=== PATIENT | male | born 1990 | race Caucasian/White ===

== ENCOUNTER 2022-03-02 23:21 | Inpatient (IN) | payer OTHER, SELFPAY ==
--- OUTSIDE RECORDS SUMMARY | 2022-03-02 23:23 | XMS REPORT | Continuity of Care Document ---
:1990 Author Organization [facility] t Address [address] [place] [id number] Care Team Providers Name Role Phone Unavailable Unavailable Unavailable Problems This patient has no known problems. Allergies, Adverse Reactions, Alerts This patient has no known allergies or adverse reactions. Medications This patient has no known medications. Procedures This patient has no known procedures. Results Test Description Test Time Test Comments Results Result Comments Source CBC W/AUTO DIFF WITH PLATELETS 2021-12-16 06:38:12 Test Item Value Reference Range Interpretation Comme nts WBC (test code = 1001) 6.4 K/UL 3.5-11.0 RBC (test code = 1002) 4.79 M/UL 4.50-6.10 HEMOGLOBIN (test code = 15.4 G/DL 13.5-17.0 1003) HEMATOCRIT (test code = 43.3 % 40.0-51.0 1004) MCV (test code = 1005) 90.4 fL 80.0-99.0 MCH (test code = 1006) 32.2 PG 25.0-33.0 MCHC (test code = 1007) 35.6 G/DL 31.0-36.0 RDW (test code = 1038) 11.9 % 11.5-15.0 NEUTROPHILS (test code = 69.1 % 1008) LYMPHOCYTES (test code = 19.0 % 1010) MONOCYTES (test code = 1011) 10.0 % EOSINOPHILS (test code = 0.8 % 1012) BASOPHILS (test code = 1013) 0.8 % IMMATURE GRANULOCYTES (test 0.3 % code = 1036) NUCLEATED RBCS (test code = 0.0 /100 WBC'S See_Comment [Automated message] The 1065) system which ge nerated this result transmit ricci reference range : 0.0. The reference range was not used to interpr et this result as reza l/abnormal. PLATELET COUNT (test code = 264 K/UL 094-026 1674) ABSOLUTE NEUTROPHILS (test 4.44 K/UL 1.50-7.50 code = 1066) ABSOLUTE LYMPHOCYTES (test 1.22 K/UL 1.00-4.00 code = 1067) ABSOLUTE MONOCYTES (test 0.64 K/UL 0.20-1.00 code = 1068) ABSOLUTE EOSINOPHILS (test 0.05 K/UL 0.00-0.50 code = 1040) ABSOLUTE BASOPHILS (test 0.05 K/UL 0.00-0.20 code = 1069) ABS IMMATURE GRANULOCYTES 0.02 K/UL 0.00-0.10 (test code = 1020) ABS NUCLEATED RBCS (test 0.00 K/UL 0.00-0.11 code = 20261) TSH, THIRD [id number] 06:06:31 Test Item Value Reference Range Interpretation Comments TSH, THIRD 9.400 UIU/ML 0.400-4.100 H UNLESS GENERATION (test OTHERWISE I NDICATED, code = 2821) ALL TESTING PER [facility], I DC. [address] [place] [address] LABORATORY DIRE CTOR: OLEG DOUGLAS M.D. CLIA NUMBER [id number] CAP ACCREDITATION N O. [id number] COMPREHENSIVE METABOLIC [id number] 03:40:20 Test Item Value Reference Range Interpretation Comments GLUCOSE (test code = 162 MG/DL 70-99 H 2216) BUN (test code = 12 MG/DL 6-20 2207) CREATININE (test 0.88 MG/DL 0.80-1.40 code = 2214) eGFR (2020 CKD-EPI) 116 >60 (test code = 40845) ML/MIN/1.73 CALC BUN/CREAT (test 14 RATIO 6-28 code = 2235) SODIUM (test code = 136 MEQ/L 862-704 5438) POTASSIUM (test code 4.6 MEQ/L 3.5-5.4 = 2227) CHLORIDE (test code 98 MEQ/L 95-107 = 221) CARBON DIOXIDE (test 22 MEQ/L 19-31 code = 2206) CALCIUM (test code = 9.4 MG/DL 8.5-10.5 2208) PROTEIN, TOTAL (test 7.6 G/DL 6.1-8.3 code = 2229) ALBUMIN (test code = 4.2 G/DL 3.5-5.2 2200) CALC GLOBULIN (test 3.4 G/DL 1.9-3.7 code = 2240) CALC A/G RATIO (test 1.2 RATIO 1.0-2.6 code = 2234) BILIRUBIN, TOTAL 0.7 MG/DL See_Comment [Automated message] (test code = 220) The syste m which generated this result transmit ricci reference range : <=1.2. The refe rence range was not u sed to interpret th is result as normal/abnormal . ALKALINE PHOSPHATASE 102 U/L 40-112 (test code = 2203) AST (test code = 505 U/L 9-50 H 2217) ALT (test code = 275 U/L 5-50 H 2218) LIPID [id number] 03:40:20 Test Item Value Reference Range Interpretation Comments CHOLESTEROL (test 249 MG/DL <200 H code = 2210) TRIGLYCERIDES (test 278 MG/DL <150 H code = 2232) HDL CHOLESTEROL (test 25 MG/DL >39 L code = 2220) CALC LDL CHOL (test 174 MG/DL <100 H NOTE: C ALCULATED LDL code = 2237) IS BASED ON LEVI-LAINEZ METHOD WHICHINCLUDES ADJUSTABLE TRIGLYCERIDE:VL DL CHOLESTEROL RAT IO.THIS FACTOR VARIES B Y MEASURED TRIGLY CERIDE AND NON-HDLCHOL ESTEROL CONCENTRATIONS WITH INCREASED CALCU LATED LDL SEENIN HIGH ER TRIGLYCERIDE OR LOWER NON-HDL SPECIME NS. FOR MOREINFORMATION , SEE CLIENT ANNOUNCE MENT AT [email or web address] RISK RATIO LDL/HDL 6.96 RATIO <3.55 H (test code = 2238)
[2022-03-02 23:53] LABS: Absolute Lymphocytes (CBC) 1.6 K/uL (0.7-4.9); Hematocrit 45.6 % (39.6-49.0); Lymphocytes % 19.3 % (15.3-44.8); MPV 9.9 fL (7.6-11.3)
[2022-03-03 00:09] LABS: BUN Blood Urea Nitrogen 6 mg/dL (7-18); Bicarbonate 23 mmol/L (21-32); Glucose Level 497 mg/dL (74-106); Potassium 4.1 mmol/L (3.5-5.1); Sodium Level 127 mmol/L (136-145); Troponin High Sensitivity 6.2 pg/mL (<58.9)
[2022-03-03] MEDS ORDERED: INSULIN -REGULAR HUMAN 50 UNIT/0.5 ML ML ONE ×2 (00:32→03:30)
[2022-03-03] MEDS ORDERED: NA CHLORIDE 0.9% 1,000 ML ONE ×2 (00:33→15:01)
--- NOTE | 2022-03-03 00:42 | ER ---
Nurse's Notes [facility] Name: Chetan Warner Age: 32 yrs Sex: Male : 1990 Arrival Date: 03/02/2022 Time: 23:25 Bed 6 Private MD: Diagnosis: Hypertensive heart disease without heart failure;Diabetic ketoacidosis Presentation: 03/02 23:34 Chief complaint: Patient states: Reports chest pain tonight, has been happening lp1 intermittently, radiating to left arm; Reports feeling thirsty frequently and like his skin is dry. Coronavirus screen: At this time, the client does not indicate any symptoms associated with coronavirus-19. Ebola Screen: No symptoms or risks identified at this time. Onset of symptoms was March 02, 2022. 23:34 Method Of Arrival: Ambulatory lp1 23:35 Chief complaint: Patient states: "I am having sharp pain in my chest.". Coronavirus tw5 screen: Vaccine status: Patient reports being unvaccinated. Ebola Screen: Patient negative for fever greater than or equal to 101.5 degrees Fahrenheit, and additional compatible Ebola Virus Disease symptoms Patient denies exposure to infectious person. Patient denies travel to an Ebola-affected area in the 21 days before illness onset. Initial Sepsis Screen: Does the patient meet any 2 criteria? HR > 90 bpm. Does the patient have a suspected source of infection? No. Patient's initial sepsis screen is negative. Risk Assessment: Do you want to hurt yourself or someone else? Patient reports no desire to harm self or others. Onset of symptoms was March 02, 2022 at 18:00. 23:35 Method Of Arrival: Ambulatory tw5 23:35 Acuity: SUSANA 2 tw5 Triage Assessment: 23:36 General: Appears uncomfortable, obese, Behavior is calm, cooperative, appropriate for tw5 age, anxious. Pain: Pain currently is 7 out of 10 on a pain scale. Cardiovascular: Rhythm is sinus rhythm. Historical: - Allergies: 23:36 NKDA; tw5 - Home Meds: 23:36 lisinopril 20 mg Oral tab 1 tab once daily [Active]; levothyroxine 50 mcg tab 1 tab tw5 once daily [Active]; - PMHx: 23:36 GERD; Hypothyroidism; tw5 - PSHx: 23:36 None; tw5 - Immunization history:: Flu vaccine is not up to date. - Social history:: Smoking status: Patient denies any tobacco usage or history of. Screenin:38 Abuse screen: Denies threats or abuse. Denies injuries from another. Nutritional tw5 screening: No deficits noted. Tuberculosis screening: No symptoms or risk factors identified. Fall Risk None identified. Assessment: 23:38 General: Reports "It is a sharp pain that goes into my arm". Pain: Complains of pain in tw5 chest Pain radiates to left arm Pain began gradually. Neuro: Level of Consciousness is awake, alert, obeys commands, Oriented to person, place, time, situation. Respiratory: No deficits noted. 03/03 00:32 Reassessment: Patient appears in no apparent distress at this time. No changes from tw5 previously documented assessment. Patient and/or family updated on plan of care and expected duration. Pain level reassessed. Vital Signs: 03/02 23:35 BP 153 / 94; Pulse 103; Resp 18; Temp 98.6(O); Pulse Ox 95% on R/A; Weight 111.13 kg; tw5 Height 5 ft. 11 in. (180.34 cm); Pain 7/10; 03/03 00:32 BP 165 / 70; Pulse 98; Resp 18; tw5 05 23:35 Body Mass Index 34.17 (111.13 kg, 180.34 cm) tw5 ED Course: 03/02 23:25 Patient arrived in ED. bp1 23:29 Analia Espinosa is Primary Nurse. tw5 23:32 Chetan Ly MD is Attending Physician. kdr 23:36 Triage completed. tw5 23:36 Arm band placed on. tw5 23:38 Patient has correct armband on for positive identification. Placed in gown. Bed in low tw5 position. Call light in reach. equipment monitor phototypesetting on. Pulse ox on. NIBP on. Door closed. Noise minimized. Moved to private room. Warm blanket given. Verbal reassurance given. 23:38 Initial lab(s) drawn, by ED staff, sent to lab. Inserted saline lock: 20 gauge in right tw5 ,using aseptic technique. Started by Zo BLANK Blood collected. Patient maintains SpO2 saturation greater than 95% on room air. 23:40 Basic Metabolic Panel Sent. tw5 23:40 Troponin HS Sent. tw5 23:40 CBC with Diff Sent. tw5 23:48 XRAY Chest (1 view) In Process Unspecified. EDMS 03/03 00:39 Yves Mulligan MD is Hospitalizing Provider. kdr 01:49 Ketone, Serum Sent. lg3 01:49 COVID-19/FLU A+B (Document "Date of Onset" if Symptomatic) Sent. lg3 01:49 Chem 7: draw after fluid bolus complete Sent. lg3 05:14 No provider procedures requiring assistance completed. Patient admitted, IV remains in lg3 place. Administered Medications: 00:30 Drug: Insulin Regular Human 10 units {Co-Signature: lg3 (Zo Russo RN).} Route: IVP; tw5 Site: right antecubital; 01:49 Follow up: Response: No adverse reaction lg3 01:50 Drug: NS 0.9% 1000 ml Route: IV; Rate: 1 bolus; Site: right antecubital; lg3 01:50 Follow up: Response: No adverse reaction; IV Status: Completed infusion; IV Intake: lg3 1000ml 03:26 Drug: Insulin Regular Human 10 units {Co-Signature: lg3 (Zo Russo RN).} Route: IVP; tw5 Site: right antecubital; 05:14 Follow up: Response: No adverse reaction lg3 Intake: 01:50 IV: 1000ml; Total: 1000ml. lg3 Outcome: 00:41 Decision to Hospitalize by Provider. kdr 05:14 Admitted to Med/surg lg3 05:14 Condition: stable 05:14 Instructed on the need for admit. 18:37 Patient left the ED. vg1 Signatures: Dispatcher [employer] EDNJ Chetan Ly MD MD kdr Montserrat Jack, RN RN lp1 Zo Russo RN RN lg3 Britt Perdomo, RN RN vg1 Sheila Phillips Tiffany tw5 Zo Russo RN lg3 Corrections: (The following items were deleted from the chart) 01:49 00:32 NS 0.9% 1000 ml IV at 1 bolus in right antecubital tw5 lg3 01:49 01:33 Response: No adverse reaction; IV Status: Completed infusion; IV Intake: 1000ml lg3 lg3 02:06 01:49 URINALYSIS+U.LAB.BRZ drawn and sent. 3 EDMS : 01:49 T4 FREE+C.LAB.BRZ drawn and sent. 3 EDMS 02: 01:49 T3 FREE+C.LAB.BRZ drawn and sent. 3 EDMS 02: 01:50 THYROID STIMULAT HORMONE+C.LAB.BRZ drawn and sent. tw5 EDMS
--- NOTE | 2022-03-03 00:42 | EDPHYS ---
Physician Documentation [facility] Name: Chetan Warner Age: 32 yrs Sex: Male : 1990 Arrival Date: 03/02/2022 Time: 23:25 Bed 6 Private MD: ED Physician Chetan Ly HPI: 03/03 00:51 This 32 yrs old Male presents to ER via Ambulatory with complaints of Chest Pain > 30 kdr y/o. 00:51 The patient or guardian reports chest pain that is located primarily in the anterior kdr chest wall, left. The pain radiates to the left shoulder. Associated signs and symptoms: Pertinent positives: Polyuria and polydipsia, 40 pound weight loss. The chest pain is described as aching, dull. Duration: The patient or guardian reports multiple episodes, that are intermittent, that wax and wane, with no pattern. Modifying factors: The symptoms are alleviated by nothing. the symptoms are aggravated by nothing. Severity of pain: At its worst the pain was very mild in the emergency department the pain has resolved. The patient has not experienced similar symptoms in the past. The patient has not recently seen a physician. Patient has a strong family history of diabetes. Patient is currently noncompliant with his hypertension and thyroid medication. Historical: - Allergies: 03/02 23:36 NKDA; tw5 - Home Meds: 23:36 lisinopril 20 mg Oral tab 1 tab once daily [Active]; levothyroxine 50 mcg tab 1 tab tw5 once daily [Active]; - PMHx: 23:36 GERD; Hypothyroidism; tw5 - PSHx: 23:36 None; tw5 - Immunization history:: Flu vaccine is not up to date. - Social history:: Smoking status: Patient denies any tobacco usage or history of. ROS: 03/03 00:51 Constitutional: Negative for fever, chills, and weight loss, Eyes: Negative for injury, kdr pain, redness, and discharge, ENT: Negative for injury, pain, and discharge, Neck: Negative for injury, pain, and swelling, Respiratory: Negative for shortness of breath, cough, wheezing, and pleuritic chest pain, Abdomen/GI: Negative for abdominal pain, nausea, vomiting, diarrhea, and constipation, Back: Negative for injury and pain, : Negative for injury, bleeding, discharge, and swelling, MS/Extremity: Negative for injury and deformity, Skin: Negative for injury, rash, and discoloration, Neuro: Negative for headache, weakness, numbness, tingling, and seizure activity. Psych: Negative for depression, anxiety, suicide ideation, homicidal ideation, and hallucinations, Allergy/Immunology: Negative for hives, rash, and allergies, Endocrine: Negative for neck swelling, polydipsia, polyuria, polyphagia, and marked weight changes, Hematologic/Lymphatic: Negative for swollen nodes, abnormal bleeding, and unusual bruising. Cardiovascular: Positive for chest pain, Negative for edema, orthopnea. Endocrine: Positive for polydipsia, polyuria, weight loss. Exam: 03/02 23:58 ECG was reviewed by the Attending Physician. kdr 03/03 00:51 Constitutional: This is a well developed, well nourished patient who is awake, alert, kdr and in no acute distress. Head/Face: Normocephalic, atraumatic. Eyes: Pupils equal round and reactive to light, extra-ocular motions intact. Lids and lashes normal. Conjunctiva and sclera are non-icteric and not injected. Cornea within normal limits. Periorbital areas with no swelling, redness, or edema. Neck: Trachea midline, no thyromegaly or masses palpated, and no cervical lymphadenopathy. Supple, full range of motion without nuchal rigidity, or vertebral point tenderness. No Meningismus. Chest/axilla: Normal chest wall appearance and motion. Nontender with no deformity. No lesions are appreciated. Cardiovascular: Regular rate and rhythm with a normal S1 and S2. No gallops, murmurs, or rubs. Normal PMI, no JVD. No pulse deficits. Respiratory: Lungs have equal breath sounds bilaterally, clear to auscultation and percussion. No rales, rhonchi or wheezes noted. No increased work of breathing, no retractions or nasal flaring. Abdomen/GI: Soft, non-tender, with normal bowel sounds. No distension or tympany. No guarding or rebound. No evidence of tenderness throughout. Back: No spinal tenderness. No costovertebral tenderness. Full range of motion. Skin: Warm, dry with normal turgor. Normal color with no rashes, no lesions, and no evidence of cellulitis. MS/ Extremity: Pulses equal, no cyanosis. Neurovascular intact. Full, normal range of motion. Neuro: Awake and alert, GCS 15, oriented to person, place, time, and situation. Cranial nerves II-XII grossly intact. Motor strength 5/5 in all extremities. Sensory grossly intact. Cerebellar exam normal. Normal gait. Psych: Awake, alert, with orientation to person, place and time. Behavior, mood, and affect are within normal limits. Vital Signs: 03/02 23:35 BP 153 / 94; Pulse 103; Resp 18; Temp 98.6(O); Pulse Ox 95% on R/A; Weight 111.13 kg; tw5 Height 5 ft. 11 in. (180.34 cm); Pain 7/10; 03/03 00:32 BP 165 / 70; Pulse 98; Resp 18; tw5 03/02 23:35 Body Mass Index 34.17 (111.13 kg, 180.34 cm) tw5 MDM: 00:41 Patient medically screened. kdr 00:51 Data reviewed: vital signs, lab test result(s), radiologic studies. Counseling: I had a kdr detailed discussion with the patient and/or guardian regarding: the historical points, exam findings, and any diagnostic results supporting the discharge/admit diagnosis, lab results, radiology results, the need for further work-up and treatment in the hospital. 03/02 23:32 Order name: Basic Metabolic Panel; Complete Time: 00:11 kdr 03/02 23:32 Order name: CBC with Diff; Complete Time: 00:11 kdr 03/02 23:32 Order name: Troponin HS; Complete Time: 00:11 kdr 03/03 00:30 Order name: Chem 7: draw after fluid bolus complete; Complete Time: 03:19 kdr 03/03 01:09 Order name: COVID-19/FLU A+B (Document "Date of Onset" if Symptomatic); Complete Time: lg3 03:03/03 01:10 Order name: Ketone, Serum; Complete Time: 03:01 sb3 03/03 01:38 Order name: Urine Dipstick-Ancillary; Complete Time: 02:11 EDMS 03/03 01:57 Order name: Glucose, Ancillary Testing; Complete Time: 02:11 EDMS 03/03 02:03 Order name: Urinalysis; Complete Time: 02:17 EDMS 03/03 02:06 Order name: Urine Microscopic Only; Complete Time: 02:17 EDMS 03/02 23:32 Order name: XRAY Chest (1 view) kdr 03/02 23:32 Order name: EKG; Complete Time: 23:33 kdr 03/02 23:32 Order name: Cardiac monitoring; Complete Time: 23:40 kdr 03/02 23:32 Order name: EKG - Nurse/Tech; Complete Time: 23:40 kdr 03/02 23:32 Order name: IV Saline Lock; Complete Time: 23:40 kdr 03/03 02:12 Order name: T3 Free; Complete Time: 03:19 EDMS 03/03 02:12 Order name: T4 Free; Complete Time: 03:19 EDMS 03/03 02:12 Order name: Thyroid Stimulating Hormone; Complete Time: 03:19 EDMS 03/03 05:57 Order name: Glucose, Ancillary Testing EDMS 03/03 06:50 Order name: Acetone Level EDMS 03/03 06:59 Order name: Basic Metabolic Panel EDMS 03/03 14:33 Order name: Glucose, Ancillary Testing EDMS 03/03 17:33 Order name: Glucose, Ancillary Testing EDMS 03/02 23:32 Order name: Labs collected and sent; Complete Time: 23:40 kdr 03/02 23:32 Order name: O2 Per Protocol; Complete Time: 23:40 kdr 03/02 23:32 Order name: O2 Sat Monitoring; Complete Time: 23:40 kdr 03/03 01:20 Order name: Urine Dipstick-Ancillary (obtain specimen); Complete Time: 01:49 sb3 EC/04 23:58 Rate is 98 beats/min. Rhythm is regular, Normal Sinus Rhythm with No ectopy. QRS [place] kdr is Normal. AR interval is normal. QRS interval is normal. QT interval is normal. Clinical impression: Normal ECG. Administered Medications: 03/03 00:30 Drug: Insulin Regular Human 10 units {Co-Signature: lg3 (Zo Russo RN).} Route: IVP; tw5 Site: right antecubital; 01:49 Follow up: Response: No adverse reaction lg3 01:50 Drug: NS 0.9% 1000 ml Route: IV; Rate: 1 bolus; Site: right antecubital; lg3 01:50 Follow up: Response: No adverse reaction; IV Status: Completed infusion; IV Intake: lg3 1000ml 03:26 Drug: Insulin Regular Human 10 units {Co-Signature: lg3 (Zo Russo RN).} Route: IVP; tw5 Site: right antecubital; 05:14 Follow up: Response: No adverse reaction lg3 Disposition Summary: 03/03/22 00:41 Hospitalization Ordered Hospitalization Status: Inpatient Admission kdr Provider: Yves Mulligan Condition: Fair kdr Problem: new kdr Symptoms: have improved kdr Bed/Room Type: Standard kdr [facility]03[facility] 00:46[facility] cg Room Assignment: ERHOLD-(03/03/22 00:46) cg Diagnosis - Hypertensive heart disease without heart failure kdr - Diabetic ketoacidosis kdr Forms: - Medication Reconciliation Form kdr - SBAR form kdr Signatures: Dispatcher [employer] EDMS Chetan Ly MD MD kdr Bhumi Perdomo, RN RN Zo Herring RN RN lg3 Analia Espinosa tw5 Hafsa Miranda PA PA sb3 Zo Russo RN lg3 Corrections: (The following items were deleted from the chart) 00:46 00:41 Telemetry/MedSurg (Inpatient) kdr cg 00:46 00:41 kdr cg 02:06 01:10 URINALYSIS+U.LAB.BRZ ordered. EDMS EDMS 02:11 00:42 THYROID STIMULAT HORMONE+C.LAB.BRZ ordered. EDMS EDMS 02:11 00:42 T3 FREE+C.LAB.BRZ ordered. EDMS EDMS 02:11 00:42 T4 FREE+C.LAB.BRZ ordered. EDMS EDMS
[2022-03-03 01:38] LABS: Urine Blood Trace-intact (Negative); Urine Glucose 2+ (Negative); Urine Protein 1+ (Negative); Urine Specific Gravity 1.015 (1.005-1.030)
[2022-03-03 02:02] LABS: Urine Appearance Clear (Clear); Urine Bilirubin Negative (Negative); Urine Blood Trace-lysed (Negative); Urine Color Yellow (Yellow); Urine Glucose 2+ (Negative); Urine Protein 1+ (Negative); Urine Specific Gravity 1.015 (1.005-1.030); Urine Urobilinogen 0.2 mg/dL (0.2-1.0); Urine pH 5.5 (5.0-7.0)
[2022-03-03 02:04] LABS: Urine Microscopic Reflex ORDER UMIC
[2022-03-03 02:13] LABS: Urine Bacteria <20 /HPF (NONE SEEN); Urine RBC <5 /HPF (NONE SEEN)
[2022-03-03 02:34] LABS: SARS-COV-2 RT PCR NEGATIVE (NEGATIVE)
[2022-03-03 03:12] LABS: BUN Blood Urea Nitrogen 8 mg/dL (7-18); Bicarbonate 26 mmol/L (21-32); Glucose Level 306 mg/dL (74-106); Sodium Level 135 mmol/L (136-145); T3 Free 2.55 pg/mL (2.18-3.98)
--- NOTE | 2022-03-03 03:15 | P.HP ---
Certification for Inpatient Patient admitted to: Inpatient With expected LOS: <2 Midnights Patient will require the following post-hospital care: None Practitioner: I am a practitioner with admitting privileges, knowledge of patient current condition, hospital course, and medical plan of care. Services: Services provided to patient in accordance with Admission requirements found in Title 42 Section 412.3 of the Code of Federal Regulations Patient History Date of Service: 03/03/22 Reason for admission: DKA History of Present Illness: Patient is a 32 y/o male with PMH of HTN, hypothyroidism, and noncompliance who presented to the ED with complaints of chest pain. Cardiac workup negative. Patient later stated he has been experiencing polyuria, polydipsia, and 40 pound unintentional weight loss. Glucose was 497, anion gap 16, urine positive for glucose and ketones. Given 10 units of insulin and 1L fluid in the ED. Glucose came down to 300 and gap to 14. Will admit patient for further evaluation and treatment. Allergies No Known Drug Allergies Allergy (Verified 03/03/22 04:03) Unknown Home medications list reviewed: Yes Home Medications: Levothyroxine Sodium 50 mcg PO DAILY 03/03/22 Lisinopril [Zestril] 20 mg PO DAILY 03/03/22 - Past Medical/Surgical History Diabetic: Yes -: Hypertension -: Type 2 Diabetes Past Surgical History: Patient denies surgical history Psychosocial/ Personal History: Patient lives at home with his family. - Family History Father -: Diabetes - Social History Smoking Status: Never smoker Alcohol use: Yes CD- Drugs: Yes Caffeine use: Yes Place of Residence: Home Review of Systems 10-point ROS is otherwise unremarkable Cardiovascular: Chest Pain Genitourinary: As per HPI Physical Examination - Physical Exam General: Alert, In no apparent distress, Oriented x3 HEENT: Atraumatic, PERRLA, EOMI, Sclerae nonicteric Neck: Supple, 2+ carotid pulse no bruit, No LAD, Without JVD or thyroid abnormality Respiratory: Clear to auscultation bilaterally, Normal air movement Cardiovascular: Regular rate/rhythm, Normal S1 S2 Gastrointestinal: Normal bowel sounds, Soft and benign, Non-distended, No tenderness Musculoskeletal: No tenderness Integumentary: No rashes Neurological: Normal speech, Normal strength at 5/5 x4 extr, Normal tone, Normal affect - Studies Laboratory Data (last 24 hrs) 03/02/22 23:40: WBC 8.0, Hgb 15.5, Hct 45.6, Plt Count 182 03/02/22 23:40: Sodium 127 L, Potassium 4.1, BUN 6 L, Creatinine 0.95, Glucose 497 H* Assessment and Plan - Problems (Diagnosis) (1) DKA (diabetic ketoacidosis) Current Visit: Yes Status: Acute Qualifiers: Diabetes mellitus type: type 2 Diabetes mellitus complication detail: without coma Qualified Code(s): E11.10 - Type 2 diabetes mellitus with ketoacidosis without coma (2) New onset type 2 diabetes mellitus Current Visit: Yes Status: Acute (3) Hypertension Current Visit: Yes Status: Chronic Qualifiers: Hypertension type: primary hypertension Qualified Code(s): I10 - Essential (primary) hypertension (4) Hypothyroidism Current Visit: No Status: Chronic Qualifiers: Hypothyroidism type: acquired Qualified Code(s): E03.9 - Hypothyroidism, unspecified - Plan -patient initially presented in DKA with BS 497 and anion gap 16.1. given 10 units of insulin and anion gap went down to 14. Will defer insulin drip at this time -patient was not aware he was diabetic. he came into ED with chest pain. He does have a strong family history -admit to medical floor with q2 accu checks. -cont IVF with potassium -cont IV insulin and transition to SQ when BG < 250 -serum osmolality pending -BMP q4h -serum ketones small. will recheck -a1c ordered Discharge Plan: Home Plan to discharge in: 48 Hours - Advance Directives Does patient have a Living Will: No Does patient have a Durable POA for Healthcare: No - Code Status/Comfort Care Code Status Assessed: Yes (Full) Critical Care: No Time Spent Managing Pts Care (In Minutes): 70
[2022-03-03] MEDS ORDERED: ONDANSETRON 4 MG/2 ML VIAL IV PRN (03:33)
[2022-03-03 03:50] VITALS: O2SAT 100; BMI 34.0
[2022-03-03] MEDS: NACHLORIDE 0.45% 1,000 ML IV SCH ×2 (04:00→10:00)
[2022-03-03] MEDS ORDERED: NACHLORIDE 0.45% 1,000 ML with POTASSIUM CL 20 MEQ IV SCH ×2 (04:00)
[2022-03-03] MEDS ORDERED: NACHLORIDE 0.45% 1,000 ML IV ONE ×2 (04:16→10:24)
[2022-03-03] MEDS ORDERED: KCL 20 MEQ/100 mL IVPB 100 ML IV ONE (04:16)
[2022-03-03 06:56] LABS: BUN Blood Urea Nitrogen 9 mg/dL (7-18); Bicarbonate 23 mmol/L (21-32); Glucose Level 256 mg/dL (74-106); Sodium Level 135 mmol/L (136-145)
[2022-03-03 06:58] LABS: Potassium 3.5 mmol/L (3.5-5.1)
[2022-03-03] MEDS ORDERED: ENOXAPARIN 40 MG/0.4 ML SQ SCH (09:00)
[2022-03-03] MEDS ORDERED: ENOXAPARIN 40 MG/0.4 ML SQ ONE (09:24)
--- NOTE | 2022-03-03 12:42 | RAD REPORT ---
EXAM DESCRIPTION: RAD - Chest Single View - 03/02/2022 11:46 pm CLINICAL HISTORY: 32 years Male, CHEST PAIN COMPARISON: None. FINDINGS: Cardiomediastinal silhouette is normal. No focal consolidation, pneumothorax or pleural effusion. Osseous structures are unremarkable. IMPRESSION: No acute findings. Electronically signed by: Igor Puente MD 03/02/2022 11:55 PM CDT Due to temporary technical issues with the PACS/Fluency reporting system, reports are being signed by the in house radiologists without review as a courtesy to insure prompt reporting. The interpreting radiologist is fully responsible for the content of the report.
--- NOTE | 2022-03-03 14:12 | EKG ---
Test Date: 2022-03-02 Test Time: 23:38:25 System Consultant: MARC MEASUREMENT RESULTS: Intervals: Rate: 98 IN: 128 QRSD: 82 QT: 328 QTc: 418 [place]: P: 15 IN: 128 QRS: 56 T: 26 INTERPRETIVE STATEMENTS: Normal sinus rhythm Normal ECG Compared to ECG 02/11/2016 12:58:35 No significant changes Electronically Signed On 03-03-22 14:11:19 CDT by Teo Nichols
[2022-03-03] MEDS ORDERED: NA CHLORIDE 0.9% 1,000 ML IV ONE (14:47)
[2022-03-03] MEDS ORDERED: D50W 25 GM/50 ML SYRINGE IV PRN (14:47)
[2022-03-03] MEDS ORDERED: GLUCAGON 1 MG/VIAL IM PRN (14:47)
[2022-03-03] MEDS ORDERED: D10W 125 ML IV PRN (14:53)
[2022-03-03] MEDS ORDERED: INSULIN 70/30 100 UNITS/ML SQ ONE ×2 (15:00→15:28)
[2022-03-03 16:16] VITALS: BP 147/88; TEMP 97.9
== END 2022-03-03 17:50 | disposition home or self-care (01) | DRG 639 ==
LOC: ER 23:21 → ERHOLD 03-03 03:07
PROVIDERS: ADMIT Hospitalist; ATTEND Hospitalist
DX: E11.10 Type 2 diabetes mellitus with ketoacidosis without coma (principal); I10 Essential (primary) hypertension; E03.9 Hypothyroidism, unspecified; K21.9 Gastro-esophageal reflux disease without esophagitis; Z91.14 Patient's other noncompliance with medication regimen; Z79.899 Other long term (current) drug therapy; Z20.822 Contact with and (suspected) exposure to COVID-19; Z83.3 Family history of diabetes mellitus
CPT/HCPCS: 0240U; 36415; 71045; 80048; 81003; 81015; 82010; 82947; 84439; 84443; 84481; 84484; 85025; 93005; 96374; 99285; J1650; J1815; J3480; J7030

== ENCOUNTER 2022-06-19 17:48 | Emergency (ER) | payer OTHER, SELFPAY ==
--- OUTSIDE RECORDS SUMMARY | 2022-06-19 17:51 | XMS REPORT | Continuity of Care Document ---
:[address] [facility] t Address [facility] [address] [place] [id number] Care Team Providers Name Role Phone Unavailable [...] 4.79 M/UL 4.50-6.10 HEMOGLOBIN (test code = 1003) 15.4 G/DL 13.5-17.0 HEMATOCRIT (test code = 1004) 43.3 % 40.0-51.0 MCV (test code = 1005) 90.4 fL [...] PLATELET COUNT (test code = 264 K/UL [phone]) ABSOLUTE NEUTROPHILS (test 4.44 K/UL 1.50-7.50 code = 1066) ABSOLUTE LYMPHOCYTES (test 1.22 K/UL 1.00-4.00 code = 1067) ABSOLUTE MONOCYTES (test code 0.64 K/UL 0.20-1.00 = 1068) ABSOLUTE EOSINOPHILS (test 0.05 K/UL 0.00-0.50 code = 1040) ABSOLUTE BASOPHILS (test code 0.05 K/UL 0.00-0.20 = 1069) ABS IMMATURE GRANULOCYTES 0.02 K/UL 0.00-0.10 (test code = 1020) ABS NUCLEATED RBCS (test code 0.00 K/UL 0.00-0.11 = 89315) TSH, THIRD [id number] 06:06:31 Test Item Value Reference Range Interpretation Comments TSH, THIRD 9.400 UIU/ML 0.400-4.100 H UNLESS OTHERWI SE GENERATION (test INDICATED, ALL TESTING code = 2820) PERFORMED [facility], [facility] [address] [place] [id number] [place] [address] DIRECTOR: OLEG HESS M.D. CLIA NUMBER [id number] CAP ACCREDITATION N O. [id number] COMPREHENSIVE METABOLIC [id number] 03:40:20 Test Item Value Reference Range Interpretation Comments GLUCOSE (test code = 162 MG/DL 70-99 H 2216) BUN (test code = 12 MG/DL 6-20 2207) CREATININE (test 0.88 MG/DL 0.80-1.40 code = 2214) eGFR (2020 CKD-EPI) 116 >60 (test code = 69207) ML/MIN/1.73 CALC BUN/CREAT (test 14 RATIO 6-28 code = 2235) SODIUM (test code = 136 MEQ/L [phone]) POTASSIUM (test code 4.6 MEQ/L 3.5-5.4 = [...] = 275 U/L 5-50 H 2218) LIPID [id number] 03:40:20 Test Item Value Reference Range Interpretation [...] MOREINFORMATION , SEE CLIENT ANNOUNCE MENT AT [email or web address] RATIO LDL/HDL 6.96 RATIO <3.55 H (test code = 2238)
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
[2022-06-19 19:56] VITALS: BP 137/86; TEMP 97.2; O2SAT 96
== END 2022-06-19 18:21 | disposition home or self-care (01) ==
LOC: ER 17:48
PROC: 0JQF0ZZ Repair Left Upper Arm Subcutaneous Tissue and Fascia, Open Approach (ICD-10-PCS; principal; 2022-06-19)
DX: S41.112A Laceration without foreign body of left upper arm, initial encounter (principal); R07.9 Chest pain, unspecified; V49.49XA Driver injured in collision with other motor vehicles in traffic accident, initial encounter; I10 Essential (primary) hypertension
CPT/HCPCS: 99282